=== PATIENT | female | born 1990 | race Caucasian/White ===

== ENCOUNTER 2017-02-18 19:33 | Emergency (ER) | payer BC ==
[2017-02-18 19:40] VITALS: BP 142/95; BMI 25.1
--- NOTE | 2017-02-18 19:48 | ED.ABDFE ---
HPI - Time seen Time seen: 19:45 - PCP Primary Care Physician: SOHAIL KAHN - Complaint Chief Complaint Doctors Comments: Patient admits to acute onset of abdominal pain 10/10, sharp, aggravated by movement, acute onset. Denies fever, vomiting or diarrhea. Admits to a history of problems with BM. Chief Complaint:: SHARP ABD PAIN(SUPRAPUBIC AREA) O/S SUDDENLY, GOT DIAPHORETIC , PALE, NEAR SYNCOPE. - Source History Provided: Patient - Mode of arrival Mode of Arrival: Ambulatory - Timing Onset of Chief Complaint: 02/18/17 PMH - PMH Past Medical History: Yes Past Medical History: Anxiety, Depression, Hypothyroidism Past Surgical History: Yes Surgical History: Tonsillectomy Past Surgical History Comment: BREAST AUGMENTATION - Family History History of Family Medical Conditions: No - Social History Does patient currently use any type of tobacco product: No Have you used tobacco products in the last 12 months: No Type of Tobacco Use: None Does any household member use tobacco: No Alcohol Use: None Do you use any recreational Drugs:: No Lives With: Spouse Lives Where: Home - infectious screening Have you traveled outside the country in the last 6 months?: No Isolation: Standard ROS - Review of Systems Constitutional: No Symptoms Reported, Diaphoresis Eyes: No Symptoms Reported ENTM: No Symptoms Reported Respiratoy: No Symptoms Reported Cardiovascular: No Symptoms Reported Gastrointestinal/Abdominal: No Symptoms Reported Genitourinary: No Symptoms Reported Neurological: No Symptoms Reported Musculoskeletal: No Symptoms Reported Integumentary: No Symptoms Reported Hematologic/Lymphatic: No Symptoms Reported Endocrine: No Symptoms Reported Psychiatric: No Symptoms Reported All Other Systems: Reviewed and Negative PE - Vital Signs Vitals: Temperature 98.3 F Pulse Rate 110 Respiratory Rate 20 Blood Pressure 142/95 O2 Sat by Pulse Oximetry 100 - General Limitations: No Limitations General Appearance: Alert, In No Apparent Distress - Head Head Exam: Normal Inspection, Atraumatic - Eyes Eye exam: Normal Appearance, PERRL, EOMI - ENT ENT Exam: Normal Exam, Normal Oropharynx - Neck Neck Exam: Normal Inspection, Full ROM - Chest Chest Inspection: Normal Inspection, Symmetric Chest Wall Rise - Respiratory Respiratory Exam: Normal Lung Sounds Bilat Respiratory Exam: Bilateral Clear to Auscultation - Cardiovascular Cardiovascular Exam: Regular Rate, Normal Rhythm - Abdominal Exam Abdominal Exam: Normal Inspection, Normal Bowel Sounds Abdominal Tenderness: negative: RUQ, RLQ, LUQ, LLQ, Epigastrium, Suprapubic, Diffuse, Mild, Moderate, Severe, Other - Back Back Exam: Normal Inspection, Full ROM - Extremeties Extremities Exam: Normal Inspection, Full ROM - External Exam: Female: Normal External Exam : Speculum Exam (Female): Normal Speculum Exam : Bimanual Exam (female): Normal Bimanual exam - Neurologic Neurological Exam: Alert, Oriented X3, CN II-XII Intact - Psychiatric Psychiatric Exam: Normal Affect - Skin Skin Exam: Warm, Dry, Intact Course - Reevaluation 1st: Improved ROR - Labs Reviewed Result Diagrams: 02/18/17 19:15 02/18/17 19:15 Laboratory: WBC 6.4 X10^3/uL (3.6-10.0) 02/18/17 19:15 RBC 4.14 X10^6/uL (3.5-5.4) 02/18/17 19:15 Hgb 12.8 g/dL (12.0-16.0) 02/18/17 19:15 Hct 37.2 % (36.0-47.0) 02/18/17 19:15 MCV 89.8 fL (80.0-100.0) 02/18/17 19:15 MCH 30.8 pg (27.0-34.0) 02/18/17 19:15 MCHC 34.3 g/dL (33.0-35.0) 02/18/17 19:15 RDW 12.7 % (11.6-16.5) 02/18/17 19:15 Plt Count 255 X10^3/uL (150.0-450.0) 02/18/17 19:15 MPV 7.6 fL (7.4-11.0) 02/18/17 19:15 Neut % 55.0 % (42.0-75.0) 02/18/17 19:15 Lymph % 36.9 % (21.0-51.0) 02/18/17 19:15 [place] % 5.1 % (0.0-13.0) 02/18/17 19:15 Eos % 2.5 % (0.9-2.9) 02/18/17 19:15 Baso % 0.5 % (0.2-1.0) 02/18/17 19:15 Neut # 3.5 x10^3/uL (2.2-4.8) 02/18/17 19:15 Lymph # 2.4 X10^3/uL (1.3-2.9) 02/18/17 19:15 [place] # 0.3 x10^3/uL (0.3-0.8) 02/18/17 19:15 Eos # 0.2 x10^3/uL (0.0-0.2) 02/18/17 19:15 Baso # 0.0 X10^3/uL (0.0-0.1) 02/18/17 19:15 Absolute Nucleated RBC 0.0 /100WBC 02/18/17 19:15 Sodium 139 mmol/L (136-145) 02/18/17 19:15 Corrected Sodium 139 mmol/L (136-145) 02/18/17 19:15 Potassium 3.6 mmol/L (3.5-5.1) 02/18/17 19:15 Chloride 104 mmol/L (98-107) 02/18/17 19:15 Carbon Dioxide 23.9 mmol/L (21-32) 02/18/17 19:15 BUN 16 mg/dL (7-18) 02/18/17 19:15 Creatinine 0.90 mg/dL (0.55-1.02) 02/18/17 19:15 Est GFR (MDRD) Af Amer > 60 (>60) 02/18/17 19:15 Est GFR (MDRD) Non-Af > 60 (>60) 02/18/17 19:15 Glucose 118 mg/dL (65-99) H 02/18/17 19:15 Calcium 8.9 mg/dL (8.5-10.1) 02/18/17 19:15 C-Reactive Protein 7.10 mg/L (0-3.0) H 02/18/17 19:15 Specimen Type Clean catch urine 02/18/17 20:12 Urine Color Yellow (YELLOW) 02/18/17 20:12 Urine Appearance Hazy (CLEAR) 02/18/17 20:12 Urine pH 6.0 (5.0 - 8.0) 02/18/17 20:12 Ur Specific [place] 1.025 (1.000-1.030) 02/18/17 20:12 Urine Protein 1+ (NEGATIVE) 02/18/17 20:12 Urine Glucose (UA) Negative (NEGATIVE) 02/18/17 20:12 Urine Ketones 1+ (NEGATIVE) 02/18/17 20:12 Urine Occult Blood 2+ (NEGATIVE) 02/18/17 20:12 Urine Nitrite Negative (NEGATIVE) 02/18/17 20:12 Urine Bilirubin Negative (NEGATIVE) 02/18/17 20:12 Urine Urobilinogen Normal (NORMAL) 02/18/17 20:12 Ur Leukocyte Esterase 1+ (NEGATIVE) 02/18/17 20:12 Urine RBC 3-5 /HPF (NEGATIVE) 02/18/17 20:12 Urine WBC 3-5 /HPF (NEGATIVE) 02/18/17 20:12 Ur Squamous Epith Cells Rare /HPF (NEGATIVE) 02/18/17 20:12 Urine Bacteria Trace /HPF (NEGATIVE) 02/18/17 20:12 Urine Mucus Few /HPF (NEGATIVE) 02/18/17 20:12 Ur Culture Indicated? No/not indicated 02/18/17 20:12 H. pylori IgG Antibody Negative (NEGATIVE) 02/18/17 19:15 - XRAY XRAY Interpreted by: Radiologist (Acute Abdomen. Chest clear; abdomen constipation throughout colon) - Diagnosis Discharge Problem: Constipation by delayed colonic transit - Discharge Plan Condition: Stable - Follow ups/Referrals Follow ups/Referrals: SOHAIL KAHN [Primary Care Provider] - 3 days - Instructions
[2017-02-18 19:54] LABS: BASOPHILS % (AUTO) 0.5 % (0.2-1.0); EOSINOPHILS # (AUTO) 0.2 x10^3/uL (0.0-0.2); EOSINOPHILS % (AUTO) 2.5 % (0.9-2.9); HEMATOCRIT 37.2 % (36.0-47.0); HEMOGLOBIN 12.8 g/dL (12.0-16.0); LYMPHOCYTES # (AUTO) 2.4 X10^3/uL (1.3-2.9); LYMPHOCYTES % (AUTO) 36.9 % (21.0-51.0); MEAN CORPUSCULAR HEMOGLOBIN 30.8 pg (27.0-34.0); MEAN CORPUSCULAR HGB CONC 34.3 g/dL (33.0-35.0); MEAN CORPUSCULAR VOLUME 89.8 fL (80.0-100.0); MEAN PLATELET VOLUME 7.6 fL (7.4-11.0); MONOCYTES # (AUTO) 0.3 x10^3/uL (0.3-0.8); MONOCYTES % (AUTO) 5.1 % (0.0-13.0); NEUTROPHILS # (AUTO) 3.5 x10^3/uL (2.2-4.8); PLATELET COUNT 255 X10^3/uL (150.0-450.0); RED BLOOD COUNT 4.14 X10^6/uL (3.5-5.4); RED CELL DISTRIBUTION WIDTH 12.7 % (11.6-16.5); WHITE BLOOD COUNT 6.4 X10^3/uL (3.6-10.0)
[2017-02-18 20:04] LABS: BLOOD UREA NITROGEN 16 mg/dL (7-18); CALCIUM 8.9 mg/dL (8.5-10.1); CARBON DIOXIDE 23.9 mmol/L (21-32); CHLORIDE 104 mmol/L (98-107); COR NA(FOR HYPERGLY) 139 mmol/L (136-145); GLUCOSE 118 mg/dL (65-99); SODIUM 139 mmol/L (136-145); eGFR BLACK RACES > 60 (>60); eGFR NON BLACK RACES > 60 (>60)
[2017-02-18 20:20] LABS: BILIRUBIN,URINE NEGATIVE (NEGATIVE); BLOOD/HEMOGLOBIN,URINE 2+ (NEGATIVE); GLUCOSE, URINE NEGATIVE (NEGATIVE); KETONES,URINE 1+ (NEGATIVE); LEUKOCYTE ESTERASE ,URINE 1+ (NEGATIVE); NITRITES,URINE NEGATIVE (NEGATIVE); PROTEIN,URINE 1+ (NEGATIVE); UROBILINOGEN,URINE NORMAL (NORMAL)
[2017-02-18 20:23] LABS: APPEARANCE,URINE HAZY (CLEAR); BACTERIA,URINE TRACE /HPF (NEGATIVE); COLOR,URINE YELLOW (YELLOW); SQUAMOUS EPITHELIAL CELL,UR RARE /HPF (NEGATIVE)
[2017-02-18 20:24] LABS: MUCUS,URINE FEW /HPF (NEGATIVE)
--- NOTE | 2017-02-18 20:42 | RAD ---
HISTORY: Pain Study: Acute abdominal series Comparison: None Findings: The trachea is midline. The cardiac silhouette is unremarkable. The lungs are clear without focal infiltrate or effusion. The bony thorax is unremarkable. Flat plate and upright evaluation of the abdomen demonstrates a normal bowel gas pattern. There is moderate feces scattered throughout the colon. No pathological soft tissue mass or calcification can be observed. The bony structures are grossly intact. IMPRESSION: 1. No acute cardiopulmonary disease. 2. Moderate constipation with no acute abnormality seen. Reported By:
[2017-02-18] MEDS ORDERED: CITROMA PO ONE (21:40)
[2017-02-18] MEDS ORDERED: CITROMA ONE (21:41)
== END 2017-02-18 21:43 | disposition home or self-care (01) ==
LOC: ER 19:55
DX: K59.09 Other constipation (principal)
CPT/HCPCS: 36415; 74022; 80048; 81001; 85025; 86140; 86677; 96365; 99283; A4222

== ENCOUNTER → 2017-06-26 | Outpatient (CLI) | payer BC ==
[2017-06-26 10:36] LABS: BASOPHILS % (AUTO) 0.6 % (0.2-1.0); EOSINOPHILS # (AUTO) 0.1 x10^3/uL (0.0-0.2); EOSINOPHILS % (AUTO) 2.4 % (0.9-2.9); HEMATOCRIT 39.5 % (36.0-47.0); HEMOGLOBIN 13.6 g/dL (12.0-16.0); LYMPHOCYTES # (AUTO) 1.6 X10^3/uL (1.3-2.9); LYMPHOCYTES % (AUTO) 37.5 % (21.0-51.0); MEAN CORPUSCULAR HGB CONC 34.4 g/dL (33.0-35.0); MEAN CORPUSCULAR VOLUME 90.2 fL (80.0-100.0); MEAN PLATELET VOLUME 7.8 fL (7.4-11.0); MONOCYTES # (AUTO) 0.3 x10^3/uL (0.3-0.8); MONOCYTES % (AUTO) 5.9 % (0.0-13.0); NEUTROPHILS # (AUTO) 2.3 x10^3/uL (2.2-4.8); NEUTROPHILS % (AUTO) 53.6 % (42.0-75.0); PLATELET COUNT 239 X10^3/uL (150.0-450.0); RED BLOOD COUNT 4.38 X10^6/uL (3.5-5.4); RED CELL DISTRIBUTION WIDTH 12.4 % (11.6-16.5); WHITE BLOOD COUNT 4.4 X10^3/uL (3.6-10.0)
[2017-06-26 11:00] LABS: HEMOGLOBIN A1C 5.3 % (4.5-6.2)
[2017-06-26 11:07] LABS: ALANINE AMINOTRANSFERASE 40 Units/L (12-78); ALBUMIN 3.9 g/dL (3.4-5.0); ALKALINE PHOSPHATASE 38 Units/L (46-116); ASPARTATE AMINO TRANSFERASE 29 Units/L (15-37); BLOOD UREA NITROGEN 13 mg/dL (7-18); CALCIUM 9.4 mg/dL (8.5-10.1); CARBON DIOXIDE 27.5 mmol/L (21-32); CHLORIDE 104 mmol/L (98-107); CREATININE 0.86 mg/dL (0.55-1.02); FREE T4 (FREE THYROXINE) 1.62 ng/dL (0.76-1.46); SODIUM 140 mmol/L (136-145); TOTAL PROTEIN 8.2 g/dL (6.4-8.2); TSH (3RD GENERATION) 0.375 uIU/mL (0.358-3.74); eGFR BLACK RACES > 60 (>60); eGFR NON BLACK RACES > 60 (>60)
[2017-06-26 11:33] LABS: IRON 144 ug/dL (50-175); TOTAL IRON BINDING CAPACITY 364 ug/dL (250-450)
[2017-07-01 06:35] LABS: DEHYDROEPIANDROSTERONE SULFATE 305 ug/dL (65-380); T3 TOTAL 166 ng/dL (80-200)
[2017-07-01 06:36] LABS: INSULIN 9 uIU/mL; VITAMIN D 25 OH 27 ng/mL (30-80)
== END ==
LOC: LAB 09:49
PROVIDERS: ATTEND Nurse Practitioner
DX: R53.83 Other fatigue (principal); E03.8 Other specified hypothyroidism; R63.5 Abnormal weight gain; E34.8 Other specified endocrine disorders
CPT/HCPCS: 36415; 80053; 82306; 82607; 82627; 82670; 82728; 83018; 83036; 83525; 83540; 83550; 84144; 84270; 84402; 84403; 84439; 84443; 84480; 84481; 85025; 86376; 86800